=== PATIENT | male | born 1995 | race Two or more races ===

== ENCOUNTER 2024-11-14 15:05 | Emergency (ER) | payer OTHER ==
[~2024-11-14] VITALS: Ht 185.4 cm; Wt 78.9 kg
[2024-11-14 17:24] VITALS: BP 122/66; TEMP 98.3; O2SAT 99
== END 2024-11-14 17:24 | disposition home or self-care (01) ==
LOC: ER 15:13
DX: R20.0 Anesthesia of skin (principal); Z88.1 Allergy status to other antibiotic agents; Z88.2 Allergy status to sulfonamides
CPT/HCPCS: 93930-TC